=== PATIENT | female | born 1975 | race Caucasian/White ===

== ENCOUNTER 2022-10-16 10:49 | Emergency (ER) | payer MEDICAID, SELFPAY ==
[2022-10-16 10:59] VITALS: BP 140/91; PULSE 128; RESP 18; TEMP 36.7; O2SAT 97
--- NOTE | 2022-10-16 11:06 | CTR_ITS ---
PROCEDURE INFORMATION: Exam: CT Abdomen And Pelvis With Contrast Exam date and time: 10/16/2022 12:06 PM Age: 46 years old Clinical indication: Abdominal pain; Localized; Upper; Prior surgery; Surgery type: Partial hyst, gb, bladder repair; Additional info: Abd pain TECHNIQUE: Imaging protocol: Computed tomography of the abdomen and pelvis with contrast. Radiation optimization: All CT scans at this facility use at least one of these dose optimization techniques: automated exposure control; mA and/or kV adjustment per patient size (includes targeted exams where dose is matched to clinical indication); or iterative reconstruction. Contrast material: OMNI 350; Contrast volume: 100 ml; Contrast route: INTRAVENOUS (IV); COMPARISON: CR XR abdomen 1V* [id number] 04/10/2021 2:44 PM RADIATION DOSE METRICS: Total DLP (mGy-cm): 881.13 FINDINGS: Lungs: Lung bases are clear. Liver: Normal. No mass. Gallbladder and bile ducts: Gallbladder has been removed. Bile ducts are not appreciably dilated. Pancreas: Unremarkable. Main pancreatic duct is not significantly dilated. Spleen: Normal. No splenomegaly. Adrenal glands: Normal. No mass. Kidneys and ureters: Few scattered small renal cysts otherwise kidneys are unremarkable. Stomach and bowel: Mild-moderate degree of retained stool throughout majority the large bowel otherwise bowel loops are unremarkable. Appendix: No evidence of acute appendicitis. Intraperitoneal space: Unremarkable. No free air. No significant fluid collection. Vasculature: Unremarkable. No abdominal aortic aneurysm. Lymph nodes: Unremarkable. No enlarged lymph nodes. Urinary bladder: Unremarkable as visualized. Reproductive: Uterus has been removed. Bones/joints: Unremarkable. No acute fracture. Soft tissues: Unremarkable. Other findings: ALung bases are clear. CT/CT abdomen pelvis w con* [id number] IMPRESSION: No acute findings within the abdomen or pelvis.
--- NOTE | 2022-10-16 11:08 | W.ED.ABDPA2 ---
HPI - Abdominal Pain General: Chief Complaint: Abdominal Pain Stated Complaint: Kidney issues and stomach pain Time Seen by Provider: 10/16/22 11:04 Source: patient Mode of arrival: ambulatory Limitations: no limitations History of Present Illness: 46-year-old female states that she has been having abdominal pain throughout the day states it is diffuse in nature is having some bilateral flank pain and right lower quadrant pain she states she had nausea she rates her pain a 6 out of 10. She states that she is also felt like she had indigestion with a lot of burps since yesterday as well she denies any fevers denies any diarrhea denies any chest pain. Associated Symptoms: Denies chills, dysuria and fever(s) Review of Systems Const: Denies: fever(s), chills, body aches or change in appetite Eyes: Denies: blurry vision or eye discomfort ENMT: Denies: throat pain or dental pain Card: Denies: chest pain Resp: Denies: dyspnea GI: Reports: abdominal pain : Denies: dysuria Musc: Denies: neck pain or back pain Skin/Breast: Denies: rash Neuro: Denies: headache(s) Psych: Denies: depression Bobby/Lymph: Denies: easy bruising All/Imm: Denies: urticaria PFSH ED PFSH: Medical History (Updated 10/16/22 @ 12:[address] MD) Fibromyalgia Surgical History (Updated 10/16/22 @ 11:[address] MD) S/P laparoscopic cholecystectomy (~2007) Family History Mother Hyperlipidemia Hypertension Grandmother Cancer Breast cancer-Paternal grandmother Family/Other Cancer Breast cancer-Paternal Aunt Father Cancer Colon cancer Social History Smoking and tobacco status: never smoked Alcohol intake: never Physical Exam Const: COMMON NORMALS: no acute distress, patient oriented x3 and healthy appearing HENMT: COMMON NORMALS: normocephalic and atraumatic HEAD & SCALP: normocephalic and atraumatic Eye: COMMON NORMALS: Equal, round and reactive pupils present and EOMs intact bilaterally PUPIL: Yes Equal, round and reactive pupils present Neck/C-Spine: COMMON NORMALS: full ROM and supple Chest: COMMONS NORMALS: normal inspection of the chest and normal palpation of entire chest wall Resp: COMMON NORMALS: normal respiratory effort, No retractions, No use of accessory muscles and clear to auscultation bilaterally AUSCULTATION: clear to auscultation bilaterally Cardio: COMMON NORMALS: regular rate, regular rhythm and No murmurs present (Cardio) RATE: regular rate RHYTHM: regular rhythm GI: COMMON NORMALS: Normal to inspection, nondistended, normoactive bowel sounds present, Soft to palpation, non-tender and no masses PALPATION: Yes Soft to palpation Extremity: COMMON NORMALS: normal to inspection and full ROM Neuro: COMMON NORMALS: patient oriented x3, moves all extremities and no focal motor deficits Psych: COMMON NORMALS: mental status grossly normal, Normal thought process present and cooperative THOUGHT PROCESS: Normal thought process present Skin: COMMON NORMALS: no rashes or lesions noted and no wounds GENERAL SKIN EXAM: no rashes or lesions noted Course Vital Signs: Vital signs: Vital Signs Temperature 98.0 F 10/16/22 10:59 Pulse Rate 102 H 10/16/22 11:32 Respiratory Rate 16 10/16/22 11:32 Blood Pressure 153/100 10/16/22 11:32 Pulse Oximetry 98 10/16/22 11:32 Oxygen Delivery Me thod 10/16/22 10:59 MDM - Abdominal Pain Medical Decision Making Patient presents with abdominal pain blood work CT scan are all normal she feels improved we will start on Protonix and Bentyl she is to follow-up with PCP and return if worsening she understands agrees to plan. Lab Data 10/16/22 11:29 10/16/22 11:29 Labs/Radiology: Radiology Impressions Abdomen/Pelvis CT 10/16/22 11:06 IMPRESSION: No acute findings within the abdomen or pelvis. Laboratory Results WBC 8.6 10^3/uL (4.0-10.0) 10/16/22 11:29 RBC 4.37 10^6/uL (4.1-5.3) 10/16/22 11:29 Hgb 13.3 g/dL (11.5-15.3) 10/16/22 11:29 Hct 41.3 % (37.0-47.0) 10/16/22 11:29 MCV 94.5 fl (81-99) 10/16/22 11:29 MCH 30.4 pg (28.0-34.0) 10/16/22 11:29 MCHC 32.2 g/dL (30.0-36.0) 10/16/22 11:29 RDW 12.4 % (12.1-15.1) 10/16/22 11:29 Plt Count 339 10^3/cmm (130-400) 10/16/22 11:29 MPV 10.9 fL (7.4-10.4) H 10/16/22 11:29 Neut % (Auto) 49.1 % 10/16/22 11:29 Lymph % (Auto) 40.8 % 10/16/22 11:29 [place] % (Auto) 8.1 % 10/16/22 11:29 Eos % (Auto) 1.2 % 10/16/22 11:29 Baso % (Auto) 0.6 % 10/16/22 11:29 Neut # (Auto) 4.23 10^3/uL (1.8-7.7) 10/16/22 11:29 Lymph # (Auto) 3.5 10^3/uL (0.8-4.8) 10/16/22 11:29 [place] # (Auto) 0.7 10^3/uL (0.2-0.9) 10/16/22 11:29 Eos # (Auto) 0.1 10^3/uL (0.0-0.8) 10/16/22 11:29 Baso # (Auto) 0.1 10^3/uL (0.0-0.1) 10/16/22 11:29 Nucleated RBC % (auto) 0 % 10/16/22 11:29 Nucleated RBCs # 0.0 /100WBC 10/16/22 11:29 Sodium 134 mmol/L (136-145) L 10/16/22 11:29 Potassium 3.5 mmol/L (3.5-5.1) 10/16/22 11:29 Chloride 101 mmol/L (98-107) 10/16/22 11:29 Carbon Dioxide 24 mmol/L (22-29) 10/16/22 11:29 Anion Gap 12.5 (5-19) 10/16/22 11:29 BUN 7 mg/dL (6-20) 10/16/22 11:29 Creatinine 0.7 mg/dL (0.5-0.9) 10/16/22 11:29 GFR Calculation 90.9 mL/min (90-130) 10/16/22 11:29 Glucose 95 mg/dL (65-115) 10/16/22 11:29 Calculated Osmolality 276 mOsm/kg (285-295) L 10/16/22 11:29 Calcium 8.9 mg/dL (8.5-10.5) 10/16/22 11:29 Total Bilirubin 0.2 mg/dL (0.15-1.2) 10/16/22 11:29 AST 15 U/L (0-32) 10/16/22 11: ALT 15 U/L (0-33) 10/16/22 11:29 Alkaline Phosphatase 99 U/L (35-105) 10/16/22 11:29 Total Protein 7.6 g/dL (6.6-8.7) 10/16/22 11:29 Albumin 3.9 g/dL (3.5-5.2) 10/16/22 11: Globulin 3.7 g/dL (1.3-4.6) 10/16/22 11: Lipase 42 U/L (13-60) 10/16/22 11:29 HCG, Qual Negative (Negative) 10/16/22 11:29 Urine Color Dark yellow (Yellow) 10/16/22 12:00 Urine Appearance Clear (CLEAR) 10/16/22 12:00 Urine pH 5 (5-7) 10/16/22 12:00 Ur Specific [place] 1.030 (1.005-1.030) 10/16/22 12:00 Urine Protein Neg (Negative) 10/16/22 12:00 Urine Glucose (UA) Norm (Normal) 10/16/22 12:00 Urine Ketones Negative (Negative) 10/16/22 12:00 Urine Blood 2+ (Negative) H 10/16/22 12:00 Urine Nitrate Negative (Negative) 10/16/22 12:00 Urine Bilirubin Neg (Negative) 10/16/22 12:00 Urine Urobilinogen Norm mg/dL (Negative) 10/16/22 12:00 Ur Leukocyte Esterase Negative (Negative) 10/16/22 12:00 Urine RBC 0-4 /hpf (0-2) H 10/16/22 12:00 Urine WBC None /hpf (0-5) 10/16/22 12:00 Ur Squamous Epith Cells 0-4 /hpf (0-5) H 10/16/22 12:00 Amorphous Sediment Not Reportable 10/16/22 12:00 Urine Bacteria 1+ /hpf (NONE) H 10/16/22 12:00 Urine Mucus 3+ /hpf 10/16/22 12:00 Discharge Plan Discharge Patient Disposition: Home Clinical Impression: Abdominal pain Condition: Stable Prescriptions: New Protonix 40 mg tablet,delayed release (DR/EC) 40 mg PO DAILY Qty: 60 0RF dicyclomine 20 mg tablet 20 mg PO TID PRN (Reason: abd pain) Qty: 20 0RF No Action ibuprofen 800 mg tablet 800 mg PO TID PRN Discharge Orders: Discharge ED (Routine); Ordered 10/16/22 Ordered By: Grace Lane Referrals: Daquan Adams MD [Primary Care Provider] - 1-3 days Discharge Diet: Advance as tolerated Discharge Activity: Resume usual activity Patient Instructions: Abdominal Pain (ED) Coding Level of Care Code ED Pot Room Supervisor for Chg Fwd Exam Comprehensive
[2022-10-16] MEDS: sodium chloride 0.9% 1,000 ML 999 ML IV (11:20)
[2022-10-16 11:21] VITALS: RESP 16; O2SAT 99
[2022-10-16] MEDS: ondansetron 2 mg/ML SDV 2 mL 4 MG IVP (11:21)
[2022-10-16] MEDS: morphine 4 mg/mL SDV 1 mL IVP (11:21)
[2022-10-16 11:32] VITALS: BP 153/100; PULSE 102; RESP 16; O2SAT 98
[2022-10-16 11:36] LABS: Basophils # 0.1 10^3/uL (0.0-0.1); Basophils % 0.6 %; Eosinophils # 0.1 10^3/uL (0.0-0.8); Eosinophils % 1.2 %; Hematocrit 41.3 % (37.0-47.0); Hemoglobin 13.3 g/dL (11.5-15.3); Lymphocytes # 3.5 10^3/uL (0.8-4.8); Lymphocytes % 40.8 %; Mean Corpuscular HGB Conc 32.2 g/dL (30.0-36.0); Mean Corpuscular Hemoglobin 30.4 pg (28.0-34.0); Mean Corpuscular Volume 94.5 fl (81-99); Mean Platelet Volume 10.9 fL (7.4-10.4); Monocytes # 0.7 10^3/uL (0.2-0.9); Monocytes % 8.1 %; Neutrophils # 4.23 10^3/uL (1.8-7.7); Neutrophils % 49.1 %; Nucleated Red Blood Cells % 0 %; Platelet Count 339 10^3/cmm (130-400); Red Blood Count 4.37 10^6/uL (4.1-5.3); Red Cell Distribution Width 12.4 % (12.1-15.1); White Blood Count 8.6 10^3/uL (4.0-10.0)
[2022-10-16 11:45] VITALS: BP 148/111; PULSE 89; RESP 16; O2SAT 100
[2022-10-16 11:49] LABS: HCG, Serum Qual Negative (Negative)
[2022-10-16 12:01] LABS: Alanine Aminotransferase 15 U/L (0-33); Albumin Level 3.9 g/dL (3.5-5.2); Alkaline Phosphatase 99 U/L (35-105); Anion Gap 12.5 (5-19); Aspartate Amino Transferase 15 U/L (0-32); Blood Urea Nitrogen 7 mg/dL (6-20); Calcium 8.9 mg/dL (8.5-10.5); Carbon Dioxide 24 mmol/L (22-29); Chloride 101 mmol/L (98-107); Globulin 3.7 g/dL (1.3-4.6); Glomerular Filtration Rate 90.9 mL/min (90-130); Glucose 95 mg/dL (65-115); Lipase 42 U/L (13-60); Osmolality Calculated 276 mOsm/kg (285-295); Potassium 3.5 mmol/L (3.5-5.1); Sodium 134 mmol/L (136-145); Total Bilirubin 0.2 mg/dL (0.15-1.2); Total Protein 7.6 g/dL (6.6-8.7)
[2022-10-16] MEDS: iohexol 350 mg/mL 500 mL Btl (per mL) IV (12:10)
[2022-10-16 12:55] LABS: Bilirubin Urine Neg (Negative); Blood Urine 2+ (Negative); Glucose Urine UA Norm (Normal); Ketones Urine Negative (Negative); Leukocyte Esterase Urine Negative (Negative); Nitrate Urine Negative (Negative); Protein Urine Neg (Negative); Urine Appearance Clear (CLEAR); Urine Color Dark Yellow (Yellow); Urobilinogen Urine Norm (Negative); pH Urine 5 (5-7)
[2022-10-16 12:56] LABS: Add Urine Culture? No; Add Urine Microscopic? YES; Bacteria Urine 1+ /hpf; Mucus Urine 3+ /hpf; RBC Urine 0-4 /hpf (0-2); Squamous Epithelial Cell Urine 0-4 /hpf (0-5)
[2022-10-16 13:02] VITALS: BP 116/81; PULSE 86; RESP 16; O2SAT 100
[2022-10-16 13:42] VITALS: BP 138/84; PULSE 90; RESP 14; O2SAT 99
== END 2022-10-16 13:44 | disposition home or self-care (01) ==
PROVIDERS: Emergency Provider Emergency Medicine; PCP Family Medicine
DX: R10.31 Right lower quadrant pain (principal)
CPT/HCPCS: 74177; 80053; 81001; 83690; 84703; 85025; 96361; 96374; 96375; 99285; J2270; J2405; J7030; Q9967

== ENCOUNTER 2025-03-19 05:06 | Emergency (ER) | payer MEDICAID, SELFPAY ==
--- NOTE | 2025-03-19 05:12 | XRR_ITS ---
PROCEDURE INFORMATION: Exam: XR Chest Exam date and time: 03/19/2025 5:25 AM Age: 49 years old Clinical indication: Cough and dyspnea; Hemoptysis; Additional info: Dyspnea/cough TECHNIQUE: Imaging protocol: Radiologic exam of the chest. Views: 1 view. COMPARISON: CT abdomen pelvis w con* [id number] 10/16/2022 12:06 PM FINDINGS: Lungs: Unremarkable. No consolidation. Pleural spaces: Unremarkable. No pleural effusion. No pneumothorax. Heart/Mediastinum: Unremarkable. No cardiomegaly. Bones/joints: Unremarkable. XR/XR chest 1V portable [id number] IMPRESSION: No acute findings.
--- NOTE | 2025-03-19 05:12 | CTR_ITS ---
PROCEDURE INFORMATION: Exam: CTA Chest With Contrast Exam date and time: 03/19/2025 5:40 AM Age: 49 years old Clinical indication: Cough and dyspnea; Additional info: Hemoptysis TECHNIQUE: Imaging protocol: Computed tomographic angiography of the chest with contrast. Exam focused on the arteries. 3D rendering (Not supervised by radiologist): MIP and/or 3D reconstructed images were created by the technologist. Radiation optimization: All CT scans at this facility use at least one of these dose optimization techniques: automated exposure control; mA and/or kV adjustment per patient size (includes targeted exams where dose is matched to clinical indication); or iterative reconstruction. Contrast material: OMNI 350; Contrast volume: 100 ml; Contrast route: INTRAVENOUS (IV); COMPARISON: CR (CHEST, ) 03/19/2025 5:25 AM RADIATION DOSE METRICS: Total DLP (mGy-cm): 383.3 FINDINGS: Pulmonary arteries: No evidence of pulmonary embolism. Aorta: Unremarkable. No aortic aneurysm. No aortic dissection. Lungs: Patchy ground-glass opacities primarily in the upper lobes, [id number]-right. Pleural spaces: Unremarkable. No pneumothorax. No pleural effusion. Heart: Unremarkable. No cardiomegaly. No pericardial effusion. Coronary arteries: No coronary artery calcifications. Lymph nodes: Mild nonspecific right hilar lymphadenopathy measuring up to 1.7 cm. Gallbladder and biliary ducts: Status post cholecystectomy. No evidence of significant biliary obstruction. Bones/joints: Unremarkable. No acute fracture. Soft tissues: Unremarkable. CT/CT angio chest PE protcl [id number] IMPRESSION: 1. No evidence of pulmonary embolism. 2. Patchy ground-glass opacities primarily in the upper lobes, [id number]-right. Suspected atypical infection. 3. Mild nonspecific right hilar lymphadenopathy measuring up to 1.7 cm.
[2025-03-19 05:13] VITALS: BP 167/98; PULSE 106; RESP 22; TEMP 36.8; O2SAT 93; BMI 31.3
--- NOTE | 2025-03-19 05:17 | ECG_ITS ---
[facility] Date: 2025-03-19 Pat Name: Lori Craig Department: Room: Gender: Female Validation Intern: : 1975 Requested By: Shaun Leal Order Number: [id number] Barrie MD: Chauncey Zhao M.D. Measurements Intervals [place] Rate: 108 P: 55 WV: 156 QRS: 21 QRSD: 87 T: 37 QT: 344 QTc: 461 Interpretive Statements SINUS TACHYCARDIA ABNORMAL RHYTHM ECG No previous ECG available for comparison Electronically Signed On 03-20-2025 18:12:32 CDT by Chauncey Zhao M.D. [id number] [id number]
--- NOTE | 2025-03-19 05:21 | ED_ITS ---
HPI - Chest Pain 2 General: Chief Complaint: Chest Pain Stated Complaint: CP Coughing up blood hard time breathing Time Seen by Provider: 03/19/25 05:09 History of Present Illness: 49-year-old female presents emergency ro om with hemoptysis orthopnea that began suddenly overnight worse this morning. She has accompanying chest pain. No recent surgeries no history of DVT or PE she is not on any anticoagulants. No recent fever sweats or chills no known history of coronary artery disease chronic respiratory problems or arrhythmias. Associated symptoms: Reports dyspnea; Deny abdominal pain or fever(s) Related Data Home Medications ?Medication ?Instructions ?Recorded ?Confirmed ibuprofen 800 mg tablet 800 mg PO TID PRN 12/13/19 0 12/13/19 Previous Rx's ?Medication ?Instructions ?Recorded dicyclomine 20 mg tablet 20 mg PO TID PRN abd pain #2 0 tabs 10/16/22 pantoprazole 40 mg tablet,delayed 40 mg PO DAILY #60 t abs 10/16/22 release (Protonix) levofloxacin 750 mg tablet 750 mg PO DAILY 7 days #7 t abs 03/19/25 Allergies Allergy/AdvReac Type Severity Reaction Status Date / Time amoxicillin AdvReac Vomiting Verified 03/19/25 05:16 and Diarrhea Review of Systems 2 Const: Denies: fever(s) or chills Card: Reports: chest pain and orthopnea Resp: Reports: dyspnea, productive cough and hemoptysis GI: Denies: abdominal pain : Denies: dysuria, urinary frequency or urinary urgency Musc: Denies: neck pain or back pain Skin/Breast: Denies: rash PFSH ED 2 PFSH: Medical History Fibromyalgia Surgical History S/P laparoscopic cholecystectomy (~2007) Family History Mother Hyperlipidemia Hypertension Grandmother Cancer Breast cancer-Paternal grandmother Family/Other Cancer Breast cancer-Paternal Aunt Father Cancer Colon cancer Social History Smoking and tobacco/nicotine status: never used tobacco/nicotine Alcohol intake: never Substance/Drug Use: never Physical Exam 2 Const: GENERAL APPEARANCE: cooperative ORIENTATION/CONSCIOUSNESS: Yes awake, Yes oriented to person, Yes oriented to place and Yes oriented to time HENMT: COMMON NORMALS: normocephalic, atraumatic and hearing grossly normal bilaterally HEAD & SCALP: normocephalic and atraumatic Resp: COMMON NORMALS: normal respiratory effort, No retractions, No use of accessory muscles and clear to auscultation bilaterally AUSCULTATION: clear to auscultation bilaterally Cardio: COMMON NORMALS: regular rate, regular rhythm and No murmurs present (Cardio) RATE: regular rate RHYTHM: regular rhythm GI: COMMON NORMALS: Soft to palpation and No hepatosplenomegaly present A USCULTATION: Yes normoactive bowel sounds PALPATION: Yes Soft to palpation, No Tenderness to palpation present (GI), No Guarding due to palpation present (GI) and Yes No hepatosplenomegaly present Extremity: COMMON NORMALS: normal to inspection, capillary refill normal, no clubbing, cyanosis or edema, no calf tenderness and no pedal edema Neuro: SENSORIUM/ORIENTATION: Yes oriented to person, Yes oriented to place and Yes oriented to time Skin: COMMON NORMALS: no rashes or lesions noted GENERAL SKIN EXAM: no rashes or lesions noted Course 2 Vital Signs: Vital signs: Vital Signs Temperature 98.2 F 03/19/25 05:13 Pulse Rate 101 H 03/19/25 06:14 Respiratory Rate 16 03/19/25 06:14 Blood Pressure 153/95 03/19/25 06:14 Pulse Oximetry 96 03/19/25 06:14 Oxygen Delivery Me thod Room Air 03/19/25 06:14 MDM - Chest Pain Medical Decision Making EKG shows sinus tachycardia with a rate of [address] changes. CTA of the chest no PEs or signs of pneumonia. White count is normal BNP is slightly elevated chemistries otherwise unremarkable. Patient has not had any hemoptysis since arriving here. Suspect this may have come from the pneumonia we will start her on Levaquin 750 p.o. daily for 7 days and have her follow-up with her primary care doctor return for further problems Medical Records I reviewed the patient's medical records. Lab Data I reviewed the patient's lab results. 03/19/25 05:25 03/19/25 05:25 Radiology Impressions Chest CTA 03/19/25 05:12 IMPRESSION: 1. No evidence of pulmonary embolism. 2. Patchy ground-glass opacities primarily in the upper lobes, [id number]-right. Suspected atypical infection. 3. Mild nonspecific right hilar lymphadenopathy measuring up to 1.7 cm. Chest X-Ray 03/19/25 05:12 IMPRESSION: No acute findings. Laboratory Results WBC 5.61 10^3/uL (3.29-11.43) 03/19/25 05:25 RBC 4.70 10^6/uL (3.85-5.65) 03/19/25 05:25 Hgb 14.10 g/dL (11.27-16.99) 03/19/25 05:25 Hct 42.9 % (36-47) 03/19/25 05:25 MCV 91.3 fl (85-98) 03/19/25 05:25 MCH 30.0 pg (27-33) 03/19/25 05:25 MCHC 32.9 g/dL (30-55) 03/19/25 05:25 RDW 13.2 % (12.1-15.1) 03/19/25 05:25 Plt Count 324 10^3/cmm (157-399) 03/19/25 05:25 MPV 10.9 fL (7.4-10.4) H 03/19/25 05:25 Neut % (Auto) 57.1 % 03/19/25 05:25 Lymph % (Auto) 33.9 % 03/19/25 05:25 [place] % (Auto) 7.0 % 03/19/25 05:25 Eos % (Auto) 1.2 % 03/19/25 05:25 Baso % (Auto) 0.4 % 03/19/25 05:25 Neut # (Auto) 3.21 10^3/uL (1.8-7.7) 03/19/25 05:25 Lymph # (Auto) 1.9 10^3/uL (0.8-4.8) 03/19/25 05:25 [place] # (Auto) 0.4 10^3/uL (0.2-0.9) 03/19/25 05:25 Eos # (Auto) 0.1 10^3/uL (0.0-0.8) 03/19/25 05:25 Baso # (Auto) 0.0 10^3/uL (0.0-0.1) 03/19/25 05:25 Nucleated RBC % (auto) 0 % 03/19/25 05:25 Nucleated RBCs # 0.0 /100WBC 03/19/25 05:25 Sodium 134 mmol/L (136-145) L 03/19/25 05:25 Potassium 4.0 mmol/L (3.5-5.1) 03/19/25 05:25 Chloride 100 mmol/L (98-107) 03/19/25 05:25 Carbon Dioxide 25 mmol/L (22-29) 03/19/25 05:25 Anion Gap 13.0 (5-19) 03/19/25 05:25 BUN 11 mg/dL (6-20) 03/19/25 05:25 Creatinine 0.7 mg/dL (0.5-0.9) 03/19/25 05:25 GFR Calculation 89.7 mL/min (90-130) L 03/19/25 05:25 Glucose 111 mg/dL (65-115) 03/19/25 05:25 Calculated Osmolality 278 mOsm/kg (285-295) L 03/19/25 05:25 Calcium 9.1 mg/dL (8.5-10.5) 03/19/25 05:25 Total Bilirubin 0.3 mg/dL (0.15-1.2) 03/19/25 05:25 AST 14 U/L (0-32) 03/19/25 05:25 ALT 13 U/L (0-33) 03/19/25 05:25 Alkaline Phosphatase 114 U/L (35-105) H 03/19/25 05:25 NT-Pro-B Natriuret Pep 1050 pg/mL (0-125) H 03/19/25 05:25 Total Protein 7.9 g/dL (6.6-8.7) 03/19/25 05:25 Albumin 3.8 g/dL (3.5-5.2) 03/19/25 05:25 Globulin 4.1 g/dL (1.3-4.6) 03/19/25 05:25 Procalcitonin 0.05 ng/mL (0-0.5) 03/19/25 05:25 All radiology interpretation(s) finalized by discharge Discharge Plan Discharge Patient Disposition: Home Clinical Impression: Pneumonia Condition: Stable Prescriptions: New levofloxacin 750 mg tablet 750 mg PO DAILY 7 Days Qty: 7 0RF No Action ibuprofen 800 mg tablet 800 mg PO TID PRN Protonix 40 mg tablet,delayed release (DR/EC) 40 mg PO DAILY Qty: 60 0RF dicyclomine 20 mg tablet 20 mg PO TID PRN (Reason: abd pain) Qty: 20 0RF Discharge Orders: Discharge ED (Routine); Ordered 03/19/25 Ordered By: Shaun Leslie Referrals: Daquan Adams MD [Primary Care Provider, Family Practice] Discharge Diet: Usual diet Discharge Activity: Increase activity as tolerated Patient Instructions: Opioid Safety, Pain Management Activity Restrictions/Additional Instructions: Thank you for choosing [facility] for your healthcare needs today. It is very important that you follow up as instructed or that you return to the Emergency Department should you have concerns or if your condition changes or worsens in any way. You were seen in the emergency room with complaints of coughing up blood. CTA of the chest did not show any pulmonary embolism but did show signs of pneumonia. Your white count and hemoglobin were normal. Recommend you start on oral antibiotics 1 pill a day for 7 days recheck if not improving or symptoms worsen. Print Language: Chinese Coding Level of Care Code ED Rn Neurology for Ernie Fisher
[2025-03-19 05:31] LABS: Basophils % 0.4 %; Eosinophils # 0.1 10^3/uL (0.0-0.8); Eosinophils % 1.2 %; Hematocrit 42.9 % (36-47); Lymphocytes # 1.9 10^3/uL (0.8-4.8); Lymphocytes % 33.9 %; Mean Corpuscular HGB Conc 32.9 g/dL (30-55); Mean Corpuscular Volume 91.3 fl (85-98); Mean Platelet Volume 10.9 fL (7.4-10.4); Monocytes # 0.4 10^3/uL (0.2-0.9); Neutrophils # 3.21 10^3/uL (1.8-7.7); Neutrophils % 57.1 %; Nucleated Red Blood Cells % 0 %; Platelet Count 324 10^3/cmm (157-399); Red Cell Distribution Width 13.2 % (12.1-15.1); White Blood Count 5.61 10^3/uL (3.29-11.43)
[2025-03-19] MEDS: iohexol 350 mg/mL 500 mL Btl (per mL) IV (05:49)
[2025-03-19 05:56] LABS: Alanine Aminotransferase 13 U/L (0-33); Albumin Level 3.8 g/dL (3.5-5.2); Alkaline Phosphatase 114 U/L (35-105); Aspartate Amino Transferase 14 U/L (0-32); Blood Urea Nitrogen 11 mg/dL (6-20); Calcium 9.1 mg/dL (8.5-10.5); Carbon Dioxide 25 mmol/L (22-29); Chloride 100 mmol/L (98-107); Creatinine Clr Calc Pharmacy 114.8847; Globulin 4.1 g/dL (1.3-4.6); Glomerular Filtration Rate 89.7 mL/min (90-130); Glucose 111 mg/dL (65-115); Osmolality Calculated 278 mOsm/kg (285-295); Sodium 134 mmol/L (136-145); Total Bilirubin 0.3 mg/dL (0.15-1.2); Total Protein 7.9 g/dL (6.6-8.7)
[2025-03-19 06:14] VITALS: BP 153/95; PULSE 101; RESP 16; O2SAT 96
[2025-03-19 06:21] LABS: NT Pro B Type Natriuretic Pept 1050 pg/mL (0-125); Procalcitonin 0.05 ng/mL (0-0.5)
[2025-03-19 06:54] VITALS: BP 154/90; PULSE 95; O2SAT 95
== END 2025-03-19 07:05 | disposition home or self-care (01) ==
PROVIDERS: Emergency Provider Family Medicine; PCP Family Medicine
DX: J18.9 Pneumonia, unspecified organism (principal); R04.2 Hemoptysis
CPT/HCPCS: 36415; 71045; 71275; 80053; 83880; 84145; 85025; 93005; 99285